=== PATIENT | female | born 1980 | race American Indian/Alaskan Native ===

== ENCOUNTER 2017-04-21 00:25 | Emergency (ER) | payer OTHER ==
[2017-04-21 03:09] LABS: Bilirubin,Urine NEG (Negative); Blood,Urine NEG (Negative); Ketones,Urine NEG (Negative); Leukocyte Esterase,Urine NEG (Negative); Mucus,Urine FEW /HPF; Nitrite,Urine NEG (Negative); Protein,Urine <15 mg/dL mg/dL (Negative)
[2017-04-21 03:39] LABS: Basophils % (Auto) 0.6 % (0.0-1.8); Eosinophils % (Auto) 1.6 % (0.0-4.3); Hematocrit 22.9 % (30.3-42.9); Hemoglobin 6.7 gm/dl (10.1-14.3); Mean Corpuscular HGB Conc 29 % (30-34); Mean Corpuscular Volume 75 fl (79-97); Platelet Count 328 K/mm3 (140-440); Red Blood Count 3.06 M/mm3 (3.65-5.03); White Blood Count 9.8 K/mm3 (4.5-11.0)
[2017-04-21 03:41] LABS: Alanine Aminotransferase 19 units/L (7-56); Albumin 3.8 g/dL (3.9-5); Albumin/Globulin Ratio 1.3 %; Alkaline Phosphatase 81 units/L (35-129); Anion Gap 18 mmol/L; BUN/Creatinine Ratio 24; Bilirubin,Total < 0.20 mg/dL (0.1-1.2); Blood Urea Nitrogen 12 mg/dL (7-17); Calcium 8.4 mg/dL (8.4-10.2); Carbon Dioxide 20 mmol/L (22-30); Chloride 107.2 mmol/L (98-107); Glucose 99 mg/dL (65-100); Lipase 40 units/L (13-60); Potassium 3.7 mmol/L (3.6-5.0); Sodium 141 mmol/L (137-145); Total Protein 6.7 g/dL (6.3-8.2)
[2017-04-21 03:43] LABS: Mean Corpuscular Hemoglobin 22 pg (28-32)
[2017-04-21 03:44] LABS: Red Cell Distribution Width 22.7 % (13.2-15.2)
[2017-04-21] MEDS ORDERED: TORADOL IV ONE (11:15)
[2017-04-21] MEDS ORDERED: SUBLIMAZE IV ONE (11:16)
[2017-04-21] MEDS ORDERED: NACL 0.9% 500 ML 500 ML IV ONE (11:16)
--- NOTE | 2017-04-21 11:17 | Emergency Department Report ---
ED General Adult HPI - General Chief complaint: Abdominal Pain Stated complaint: ABD PAIN Time Seen by Provider: 04/21/17 11:05 Source: family, RN notes reviewed Mode of arrival: Ambulatory Limitations: No Limitations - History of Present Illness Initial comments: This is a 36-year-old female who is previously unknown to me. She does not have a primary care doctor. She does not have any chronic medical conditions. She presents to the ER with abdominal pain. Abdominal pain is in the left upper quadrant, and bilateral lower quadrants. The pain is intermittent. It decreases when she sleeps. It increases when she lays on her side. It does not radiate anywhere. Positive nausea, no vomiting. Patient reports no defecation for the past few days. There is no hematemesis or bright red blood per rectum, patient also endorses no vaginal discharge. -: Gradual Location: abdomen Severity scale (0 -10): 6 Improves with: other (per hpi) Worsens with: other (per hpi) Associated Symptoms: malaise, nausea/vomiting. denies: confusion, chest pain, cough, diaphoresis, fever/chills, headaches, loss of appetite, rash, seizure, shortness of breath, syncope, weakness - Related Data Previous Rx's Medication Instructions Recorded Last Taken Type Acetaminophen [Tylenol Arthritis] 650 mg PO Q6HR PRN #30 tablet.er 04/21/17 Unknown Rx Ferrous Sulfate [Feosol 325 MG tab] 325 mg PO TID #90 tablet 04/21/17 Unknown Rx Metoclopramide [Reglan] 10 mg PO QID PRN #30 tab 04/21/17 Unknown Rx Polyethylene Glycol 3350 [Miralax 17 gm PO QDAY #30 packet 04/21/17 Unknown Rx 3350] Promethazine [Phenergan SUPPOS] 50 mg [place] Q6H PRN #20 supp.rect 04/21/17 Unknown Rx Allergies Allergy/AdvReac Type Severity Reaction Status Date / Time iodine Allergy Swelling Verified 04/21/17 02:26 ED Review of Systems ROS: Stated complaint: ABD PAIN Other details as noted in HPI ED Past Medical Hx - Past Medical History Previous Medical History?: No - Surgical History Past Surgical History?: Yes Additional Surgical History: c-sect - Social History Smoking Status: Current Every Day Smoker Substance Use Type: None - Medications Home Medications: Home Medications Medication Instructions Recorded Confirmed Last Taken Type Acetaminophen [Tylenol Arthritis] 650 mg PO Q6HR PRN #30 tablet.er 04/21/17 Unknown Rx Ferrous Sulfate [Feosol 325 MG tab] 325 mg PO TID #90 tablet 04/21/17 Unknown Rx Metoclopramide [Reglan] 10 mg PO QID PRN #30 tab 04/21/17 Unknown Rx Polyethylene Glycol 3350 [Miralax 17 gm PO QDAY #30 packet 04/21/17 Unknown Rx 3350] Promethazine [Phenergan SUPPOS] 50 mg [place] Q6H PRN #20 supp.rect 04/21/17 Unknown Rx ED Physical Exam - General Limitations: No Limitations General appearance: alert, in no apparent distress - Head Head exam: Present: atraumatic, normocephalic - Eye Eye exam: Present: normal appearance, EOMI. Absent: nystagmus - ENT ENT exam: Present: normal exam, normal orophraynx, mucous membranes moist, normal external ear exam - Neck Neck exam: Present: normal inspection, full ROM - Respiratory Respiratory exam: Present: normal lung sounds bilaterally. Absent: respiratory distress - Cardiovascular Cardiovascular Exam: Present: regular rate, normal rhythm, normal heart sounds. Absent: systolic murmur, diastolic murmur, rubs, gallop - GI/Abdominal GI/Abdominal exam: Present: soft, tenderness, normal bowel sounds. Absent: distended, guarding, rebound, rigid, pulsatile mass - External exam: Present: normal external exam Speculum exam: Present: normal speculum exam Bi-manual exam: Present: cervical motion tendernes, adnexal tenderness, uterine tenderness, other (escorted by Viktoriya Herrera). Absent: adnexal mass, uterine enlargement - Extremities Exam Extremities exam: Present: normal inspection, full ROM, normal capillary refill. Absent: pedal edema, joint swelling, calf tenderness - Back Exam Back exam: Present: normal inspection, full ROM. Absent: tenderness, CVA tenderness (R), paraspinal tenderness, vertebral tenderness - Neurological Exam Neurological exam: Present: alert, oriented X3, CN II-XII intact, other ( Extraocular movements intact. Tongue midline. No facial droop. Facial sensation intact to light touch in the V1, V2, V3 distribution bilaterally. 5 and 5 strength in 4 extremities.. Sensation is intact to light touch in 4 extremities.). Absent: motor sensory deficit - Psychiatric Psychiatric exam: Present: normal affect, normal mood - Skin Skin exam: Present: warm, dry, intact, normal color. Absent: rash ED Course Vital Signs 04/21/17 04/21/17 04/21/17 02:27 06:07 09:52 Temperature 98.4 F 97.7 F 98.5 F Pulse Rate 104 H 90 94 H Respiratory 18 16 18 Rate Blood Pressure 119/74 115/68 Blood Pressure 119/73 [Left] O2 Sat by Pulse 100 100 98 Oximetry 04/21/17 04/21/17 09:53 11:00 Temperature Pulse Rate 86 Respiratory 18 14 Rate Blood Pressure Blood Pressure 111/67 [Left] O2 Sat by Pulse 98 99 Oximetry - Reevaluation(s) Reevaluation #1: 04/21/17 13:22 Differential diagnosis, including but not limited to: Constipation, appendicitis , pelvic inflammatory disease Assessment and plan: 36-year-old female with diffuse abdominal pain, cervical motion tenderness and clinical history of constipation. She is afebrile with reassuring vital signs and her tachycardia has resolved. His most like the constipation. We will obtain a CT scan of abdomen and pelvis with oral contrast. Patient endorsed anaphylaxis to iodine. Of note, there was a significant delay in disposition as the patient initially refused to drink oral contrast, and has just started drinking contrast now this time. In addition, she is found to have an asymptomatic microcytic anemia, she is not having vaginal bleeding currently, she denies hematemesis and bright red blood per rectum. The patient can be started on iron supplementation for this, and she can follow up with outpatient primary care and/or gynecology. Reevaluation #2: 04/21/17 16:11 CT scan with oral contrast and discharge constipation, paralytic ileus. Patient able to tolerate liquid feeds without difficulty. She is therefore suitable for trial of outpatient management. Patient will be discharged with nonnarcotic pain medication, nausea medication, including Reglan to facilitate peristalsis. She will also be discharged with MiraLAX, and she is given diet and lifestyle modification instructions. She will be discharged at this time, return precautions are reviewed. Given all this, doubt pelvic inflammatory disease. her primary care doctor can follow-up on her culture results, and I will give her some outpatient referrals. ED Medical Decision Making - Lab Data Result diagrams: 04/21/17 02:55 04/21/17 02:55 Vital Signs 04/21/17 04/21/17 04/21/17 02:27 06:07 09:52 Temperature 98.4 F 97.7 F 98.5 F Pulse Rate 104 H 90 94 H Respiratory 18 16 18 Rate Blood Pressure 119/74 115/68 Blood Pressure 119/73 [Left] O2 Sat by Pulse 100 100 98 Oximetry 04/21/17 04/21/17 09:53 11:00 Temperature Pulse Rate 86 Respiratory 18 14 Rate Blood Pressure Blood Pressure 111/67 [Left] O2 Sat by Pulse 98 99 Oximetry Labs 04/21/17 04/21/17 04/21/17 02:50 02:55 02:55 WBC 9.8 RBC 3.06 L Hgb 6.7 L Hct 22.9 L MCV 75 L MCH 22 L MCHC 29 L RDW 22.7 H Plt Count 328 Lymph % (Auto) 13.9 Eddy % (Auto) 10.4 H Eos % (Auto) 1.6 Baso % (Auto) 0.6 Lymph # 1.4 Eddy # 1.0 H Eos # 0.2 Baso # 0.1 Seg Neutrophils % 73.5 H Seg Neutrophils # 7.2 Sodium 141 Potassium 3.7 Chloride 107.2 H Carbon Dioxide 20 L Anion Gap 18 BUN 12 Creatinine 0.5 L Estimated GFR > 60 BUN/Creatinine Ratio 24 Glucose 99 Calcium 8.4 Total Bilirubin < 0.20 AST 20 ALT 19 Alkaline Phosphatase 81 Total Protein 6.7 Albumin 3.8 L Albumin/Globulin Ratio 1.3 Lipase 40 HCG, Qual Urine Color Yellow Urine Turbidity Clear Urine pH 6.0 Ur Specific Luna 1.028 Urine Protein <15 mg/dl Urine Glucose (UA) Neg Urine Ketones Neg Urine Blood Neg Urine Nitrite Neg Urine Bilirubin Neg Urine Urobilinogen 2.0 Ur Leukocyte Esterase Neg Urine WBC (Auto) 1.0 Urine RBC (Auto) 2.0 U Epithel Cells (Auto) 5.0 Urine Mucus Few 04/21/17 02:55 WBC RBC Hgb Hct MCV MCH MCHC RDW Plt Count Lymph % (Auto) Eddy % (Auto) Eos % (Auto) Baso % (Auto) Lymph # Eddy # Eos # Baso # Seg Neutrophils % Seg Neutrophils # Sodium Potassium Chloride Carbon Dioxide Anion Gap BUN Creatinine Estimated GFR BUN/Creatinine Ratio Glucose Calcium Total Bilirubin AST ALT Alkaline Phosphatase Total Protein Albumin Albumin/Globulin Ratio Lipase HCG, Qual Negative Urine Color Urine Turbidity Urine pH Ur Specific Luna Urine Protein Urine Glucose (UA) Urine Ketones Urine Blood Urine Nitrite Urine Bilirubin Urine Urobilinogen Ur Leukocyte Esterase Urine WBC (Auto) Urine RBC (Auto) U Epithel Cells (Auto) Urine Mucus - Radiology Data Radiology results: report reviewed, image reviewed [facility] [address] [place] [address] Cat Scan Report Signed Patient: LELAND SMITH MR#: [id number] : 1980 Acct:[id number] Age/Sex: 36 / F ADM Date: 04/21/17 Loc: ED Attending Dr: Ordering Physician: NORA OLIVO MD Date of Service: 04/21/17 Procedure(s): CT abdomen pelvis wo con Accession Number(s): [id number] cc: NORA OLIVO MD FINAL REPORT EXAM: CT ABDOMEN PELVIS WO CON HISTORY: abd pain, oral contrast only TECHNIQUE: CT examination of the ABDOMEN without IV contrast CT examination of the PELVIS without IV contrast PRIORS: None. FINDINGS: Slight spinal curvature with right apex at the thoracolumbar junction. Small calcified granulomas in the liver and spleen. Normal-appearing gallbladder, adrenals, and pancreas. Normal caliber abdominal aorta and IVC. There are nonspecific hyperdense renal pyramids. This may reflect developmental variation, dehydration, or represent medullary nephrocalcinosis. No evidence of renal calculus or hydronephrosis. Normal-appearing proximal ureters. Ureters otherwise obscured by adjacent anatomy. Very small fat containing umbilical hernia. Very small fat containing right inguinal hernia. No retroperitoneal adenopathy. No visible mesenteric mass. Normal-appearing stomach and duodenum. No small bowel distention in the abdomen and pelvis. No pelvic free fluid. Normal-appearing urinary bladder, uterus, and adnexa. Prominent stool from cecum to rectum suggestive constipation. There is also prominent gas throughout multiple loops of small bowel and colon which may reflect paralytic ileus. There is also slight diffuse prominence of colon caliber. No gross ascites or free air. Normal-appearing terminal ileum and appendix. IMPRESSION: Scattered prominence of small bowel and large bowel gas may reflect paralytic ileus. Prominent stool from cecum to rectum compatible with constipation. Hyperdense renal pyramids may reflect developmental variation or dehydration. The differential includes medullary nephrocalcinosis. Very small fat containing hernias Transcribed By: GALINDO Dictated By: PANFILO HICKS MD Electronically Authenticated By: PANFILO HICKS MD Signed Date/Time: 04/21/17 0705 Critical care attestation.: If time is entered above; I have spent that time in minutes in the direct care of this critically ill patient, excluding procedure time. ED Disposition Clinical Impression: Abdominal pain Disposition: DC-01 TO HOME OR SELFCARE Is pt being admited?: No Does the pt Need Aspirin: No Condition: Stable Instructions: Abdominal Pain (ED) Additional Instructions: Take the pain medication, nausea medication as needed/directed. Increased water consumption to 6-8 cups of water per day. Take Tylenol as needed for pain. Please note that blood counts were low, and you should take the iron supplementation as directed. The eyes supplementation can cause black stools, and constipation. Take the MiraLAX as directed. Follow-up with a nurseryperson within the next month. Dr. Smith is a local nurseryperson. Cultures was sent today, results of be available in the next 3-5 days. Have a primary care doctor contact the medical records department to obtain culture results. Follow-up with either her primary care doctor or construction analyst for your abdominal pain and constipation within the next 10 days. Return to the ER right away with new pain, worsening pain, migration of pain, intractable nausea or vomiting, confusion, inability to tolerate liquid feeds, projectile vomiting , change in mental status. Prescriptions: Ferrous Sulfate [Feosol 325 MG tab] 325 mg PO TID #90 tablet Referrals: NORA GONZALEZ MD [Primary Care Provider] - 3-5 Days ESTELA RADFORD MD [Staff Physician] - 3-5 Days HOWARD COOPER MD [Staff Physician] - 3-5 Days MAXI SMITH MD [Staff Physician] - 3-5 Days
[2017-04-21] MEDS ORDERED: ZOFRAN IV ONE (12:09)
--- NOTE | 2017-04-21 15:52 | Cat Scan Report ---
FINAL REPORT EXAM: CT ABDOMEN PELVIS WO CON HISTORY: abd pain, oral contrast only TECHNIQUE: CT examination of the ABDOMEN without IV contrast CT examination of the PELVIS without IV contrast PRIORS: None. FINDINGS: Slight spinal curvature with right apex at the thoracolumbar junction. Small calcified granulomas in the liver and spleen. Normal-appearing gallbladder, adrenals, and pancreas. Normal caliber abdominal aorta and IVC. There are nonspecific hyperdense renal pyramids. This may reflect developmental variation, dehydration, or represent medullary nephrocalcinosis. No evidence of renal calculus or hydronephrosis. Normal-appearing proximal ureters. Ureters otherwise obscured by adjacent anatomy. Very small fat containing umbilical hernia. Very small fat containing right inguinal hernia. No retroperitoneal adenopathy. No visible mesenteric mass. Normal-appearing stomach and duodenum. No small bowel distention in the abdomen and pelvis. No pelvic free fluid. Normal-appearing urinary bladder, uterus, and adnexa. Prominent stool from cecum to rectum suggestive constipation. There is also prominent gas throughout multiple loops of small bowel and colon which may reflect paralytic ileus. There is also slight diffuse prominence of colon caliber. No gross ascites or free air. Normal-appearing terminal ileum and appendix. IMPRESSION: Scattered prominence of small bowel and large bowel gas may reflect paralytic ileus. Prominent stool from cecum to rectum compatible with constipation. Hyperdense renal pyramids may reflect developmental variation or dehydration. The differential includes medullary nephrocalcinosis. Very small fat containing hernias
[2017-04-21 16:34] VITALS: BP 105/72
== END 2017-04-21 16:34 | disposition home or self-care (01) ==
LOC: ED 00:25
DX: R10.84 Generalized abdominal pain (principal); F17.200 Nicotine dependence, unspecified, uncomplicated
CPT/HCPCS: 36415; 74176; 80053; 81001; 83690; 84703; 85025; 87210; 87591; 96361; 96374; 96375; 99284; J1885; J3010; J7040; J2405